=== PATIENT | male | born 1990 | race American Indian/Alaskan Native ===

== ENCOUNTER 2019-05-16 02:43 | Emergency (ER) | payer OTHER ==
[2019-05-16] MEDS ORDERED: IBUPROFEN PO ONE (03:28)
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
[2019-05-16 04:13] VITALS: BP 129/85
== END 2019-05-16 04:00 | disposition home or self-care (01) ==
LOC: ED 02:43
DX: S60.212A Contusion of left wrist, initial encounter (principal); I10 Essential (primary) hypertension; Y09 Assault by unspecified means; Y93.89 Activity, other specified; Y92.69 Other specified industrial and construction area as the place of occurrence of the external cause; Y99.8 Other external cause status